=== PATIENT | male | born 1975 | race Caucasian/White ===

== ENCOUNTER 2017-02-26 15:37 | Inpatient (IN) | payer MEDICARE, OTHER ==
--- NOTE | ~2017-02-26 | PN ---
Unit #: [id number] #: [id number] Patient: REENA ACKERMAN [id number] [facility] [address] [place] [address] [id number] I MR#: [id number] NAME: REENA ACKERMAN. ROOM: P264 Age: 41 Sex: M Admission Date: 02/26/2017 : 1975 Attending Physician: Luz Mena M.D. Admitting Physician: Luz Mena M.D. Primary Care Physician: Primary Care Physician Jazz MORFIN PROGRESS NOTES DATE 03/07/2017 DISCUSSION Mr. Ackerman is a 41-year-old white male who was seen today and chart was reviewed and case was discussed with the staff. He is anxious, withdrawn and rather seclusive to himself. Meanwhile, he has been cooperative with treatment recommendations and has been taking medications and tolerating them fairly well. MENTAL STATUS EXAMINATION Middle-aged white male who was casually dressed with fair personal hygiene and appears to be in no acute distress or discomfort. He was awake and alert on interaction with intact orientation. His mood was anxious with congruent affect. He denies any suicidal or homicidal ideations. His insight and judgement remains slightly impaired. TREATMENT PLAN 1. Will continue his current medications and treatment protocol. Will monitor his response to the medications and make further adjustments as needed. 2. Will continue to follow up. Dictated by... Anthony Guadarrama/cecil TD: 03/07/2017 18:19 JOB #: [id number] Unit #: [id number] #: [id number] Patient: REENA ACKERMAN PROGRESS NOTES Page 1 of 1 X Luz Mena MD X PROGRESS NOTE
--- NOTE | ~2017-02-26 | PN ---
Unit #: [id number] #: [id number] Patient: REENA ACKERMAN [id number] [facility] [address] [place] [address] [id number] I MR#: [id number] NAME: REENA ACKERMAN. ROOM: P254 Age: 41 Sex: M Admission Date: 02/26/2017 : 1975 Attending Physician: Luz Mena M.D. Admitting Physician: Luz Mena M.D. Primary Care Physician: Primary Care Physician Jazz MORFIN PROGRESS NOTES DATE OF SERVICE 02/27/2017 DISCUSSION Mr. Ackerman is a 41-year-old white male who was seen today. Chart was reviewed and case was discussed with the staff. He has been anxious, withdrawn, and rather seclusive to himself and has been expressing persistent depressive symptoms with feelings of hopelessness. Meanwhile, he has been polite and pleasant, cooperative with treatment recommendations. MENTAL STATUS EXAMINATION Middle-aged white male who is casually dressed with fair personal hygiene and appears to be in no acute distress or discomfort. The patient was awake and alert on interaction with intact orientation. His mood is anxious and depressed with congruent affect. His speech is slow and goal-directed. He denies any suicidal or homicidal ideations and also denies any auditory or visual hallucinations. His insight and judgment remain slightly impaired. TREATMENT PLAN 1. We will continue him on his current medications and treatment protocol. We will monitor his response to the medications and make further adjustments as needed. 2. We will continue to follow up. Dictated by... Anthony Guadarrama/josiah TD: 02/28/2017 07:11 JOB #: [id number] Unit #: [id number] #: [id number] Patient: REENA ACKERMAN SHELBIE PROGRESS NOTES Page 1 of 1 X Luz Mena MD PROGRESS NOTE
--- NOTE | ~2017-02-26 | PN ---
Unit #: [id number] #: [id number] Patient: REENA ACKERMAN [id number] [facility] [address] [place] [address] [id number] I MR#: [id number] NAME: REENA ACKERMAN. ROOM: P256 Age: 41 Sex: M Admission Date: 02/26/2017 : 1975 Attending Physician: Luz Mena M.D. Admitting Physician: Luz Mena M.D. Primary Care Physician: Primary Care Physician Jazz CLANCY NOTES DATE March 04, 2017 DISCUSSION Mr. Ackerman is a 41-year-old white male, who was seen today and chart was reviewed and the case was discussed with the staff. He has been anxious, withdrawn, and rather seclusive to himself. Meanwhile, he has been cooperative with the treatment recommendations and he has been taking the medications and tolerating them fairly well with no reported side effects. MENTAL STATUS EXAMINATION Middle-aged white male, who was casually dressed with fair personal hygiene and appears to be in no acute distress or discomfort. He was awake and alert on interaction with intact orientation. His mood is anxious with a congruent affect. He denies any suicidal or homicidal ideations, and also denies any auditory or visual hallucinations. His insight and judgment remain slightly impaired. TREATMENT PLAN 1. We will continue him on his current medications and treatment protocol, and will monitor his response to the medications, and make further adjustments as needed. 2. We will continue to followup. Dictated by... Anthony Guadarrama/hitesh TD: 03/04/2017 12:47 JOB #: [id number] Unit #: [id number] #: [id number] Patient: REENA ACKERMAN SHELBIE PROGRESS NOTES Page 1 of 1 X Luz Mena MD PROGRESS NOTE
--- NOTE | ~2017-02-26 | PN ---
Unit #: [id number] #: [id number] Patient: REENA ACKERMAN [id number] [facility] [address] [place] [address] [id number] I MR#: [id number] NAME: REENA ACKERMAN. ROOM: P256 Age: 41 Sex: M Admission Date: 02/26/2017 : 1975 Attending Physician: Luz Mena M.D. Admitting Physician: Luz Mena M.D. Primary Care Physician: Primary Care Physician Jazz MORFIN PROGRESS NOTES DATE 03/05/2017 DISCUSSION Mr. Ackerman is a 41-year-old white male with mood disorder and psychosis who was seen today and chart was reviewed and case was discussed with the staff. He has been anxious, withdrawn and rather seclusive to himself. Meanwhile, he has been cooperative with treatment recommendations and has been taking medications and tolerating them fairly well with no reported side effects. MENTAL STATUS EXAMINATION Middle-aged white male who was casually dressed with fair personal hygiene and appears to be in no acute distress or discomfort. He was awake and alert on interaction with intact orientation. His mood was anxious and depressed with congruent affect. His speech is slow and goal-directed. He reports having suicidal ideations as well as auditory hallucinations. His insight and judgement remains significantly impaired. TREATMENT PLAN 1. We will continue him on his current medications and treatment protocol. Will monitor his response to the medications and make further adjustments as needed. 2. Will continue to follow up. Dictated by... Anthony Guadarrama/cecil TD: 03/05/2017 18:18 JOB #: [id number] Unit #: [id number] #: [id number] Patient: REENA ACKERMAN SHELBIE PROGRESS NOTES Page 1 of 1 X Luz Mena MD PROGRESS NOTE
--- NOTE | ~2017-02-26 | PN ---
Unit #: [id number] #: [id number] Patient: REENA ACKERMAN [id number] [facility] [address] [place] [address] [id number] I MR#: [id number] NAME: REENA ACKERMAN. ROOM: P264 Age: 41 Sex: M Admission Date: 02/26/2017 : 1975 Attending Physician: Luz Mena M.D. Admitting Physician: Luz Mena M.D. Primary Care Physician: Primary Care Physician Jazz CLANCY NOTES DATE OF SERVICE: 03/09/2017 SUBJECTIVE Mr. Ackerman is a 41-year-old white male who was seen today and chart was reviewed, and case was discussed with the staff. He has been anxious, withdrawn, though has not shown any agitation or irritability, and has been cooperative with treatment recommendations as he has been taking the medications and tolerating them fairly well with no reported side effects. MENTAL STATUS EXAMINATION Middle-aged white male who was casually dressed with fair personal hygiene, appears to be in no acute distress or discomfort. He was awake and alert with intact orientation. His mood was anxious with a congruent affect. He denies any suicidal or homicidal ideation. His insight and judgment remain slightly impaired. TREATMENT PLAN 1. We will continue him on his current medications and treatment protocol. We will monitor his response to the medication and make further adjustments as needed. 2. We will continue to follow up. Dictated by... Anthony Guadarrama/cecilia TD: 03/09/2017 13:32 JOB #: [id number] [facility] PROGRESS NOTES Page 1 of 1 X Luz Mena MD PROGRESS NOTE
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
--- NOTE | ~2017-02-26 | PN ---
Unit #: [id number] #: [id number] Patient: REENA ACKERMAN [id number] [facility] [address] [place] [address] [id number] I MR#: [id number] NAME: REENA ACKERMAN. ROOM: P254 Age: 41 Sex: M Admission Date: 02/26/2017 : 1975 Attending Physician: Luz Mena M.D. Admitting Physician: Luz Mena M.D. Primary Care Physician: Primary Care Physician Jazz CLANCY NOTES DATE OF SERVICE: 03/02/2017 SUBJECTIVE Mr. Ackerman is a 41-year-old white male with mood disorder and psychosis, who was seen today and chart was reviewed and case was discussed with the staff. He has been anxious, withdrawn, and seclusive to himself. He reports persistent depressive symptoms, though has been cooperative with treatment recommendation and has been taking the medications and tolerating them fairly well with no reported side effects. MENTAL STATUS EXAMINATION Middle-aged white male who was casually dressed with fair personal hygiene, appears to be in no acute distress or discomfort. He was awake and alert on interaction with intact orientation. His mood was anxious with a congruent affect. He denies any suicidal or homicidal ideations. His insight and judgment remain slightly impaired. TREATMENT PLAN 1. We will continue him on his current medications and treatment protocol. We will monitor his response to medications and make further adjustments as needed. 2. We will continue to follow up. Dictated by... Anthony Guadarrama/cecilia TD: 03/02/2017 14:46 JOB #: [id number] SHELBIE PROGRESS NOTES Page 1 of 1 X Luz Mena MD X PROGRESS NOTE
--- NOTE | ~2017-02-26 | DS ---
Unit #: [id number] #: [id number] Patient: REENA KNOTT [id number] [facility] [address] [place] [address] [id number] I MR#: [id number] NAME: REENA KNOTT. ROOM: P264 Age: 41 Sex: M Admission Date: 02/26/2017 : 1975 Discharge Date: 03/14/2017 Attending Physician: Luz Mena M.D. Primary Care Physician: Primary Care Physician No DISCHARGE SUMMARY IDENTIFYING DATA Mr. Knott is a 41-year-old disabled white male, who is a resident of [place], [place], and was transferred to us from [facility]. DISCHARGE DIAGNOSES Psychiatric: Major depressive disorder, recurrent, moderate, without psychotic features; alcohol dependence, moderate, in acute withdrawals. Medical: Hypertension, diabetes mellitus, hypothyroidism. Stressors: Moderate psychosocial stressors. HISTORY OF PRESENT ILLNESS Please see initial psychiatric evaluation for details. PAST PSYCHIATRIC HISTORY Please see initial psychiatric evaluation for details. PAST MEDICAL HISTORY Please see initial psychiatric evaluation for details. HOSPITAL COURSE The patient was admitted to the adult psychiatric unit at [facility] and was oriented to the hospital environment. Routine p.r.n. medications were initiated, and he was started back on his home medications and medications were adjusted and he was closely monitored. He was taking the medications regularly and was tolerating them fairly well, though had a long and complicated course with persistent depression and psychosis; however, he was seen to be polite and pleasant and cooperative with treatment recommendations, and he was going to therapy groups and was participating and was taking the medications regularly and was tolerating them fairly well of his medications particularly his Seroquel was gradually and regularly titrated and he was also considered to be a candidate for combination antidepressant due to his persistent depressive symptoms and also medications were adjusted and he started showing therapeutic response. He actually started asking wanting to go home and was denying any suicidal ideations, intent, or plan and was not seen to be danger to self or anyone else, and was willing to continue treatment on an outpatient basis and as such, it was decided that he will be discharged home and will continue treatment on an outpatient basis. DISCHARGE MEDICATIONS Seroquel 50 mg in the morning and 400 mg at bedtime for mood, Zoloft 100 mg in the morning for depression, Wellbutrin XL 300 mg in the morning for depression, Protonix 40 mg a day for acid reflux, Actos 45 mg a day for Unit #: [id number] #: [id number] Patient: REENA KNOTT diabetes, Levemir 40 units at bedtime for diabetes, Proventil inhaler every 6 hours as needed for asthma, Zestril 20 mg a day for hypertension, Oretic 12.5 mg a day for hypertension, Neurontin 800 mg t.i.d. for neuropathy, Glucophage 500 mg b.i.d. for diabetes, Synthroid 0.1 mg a day for diabetes. DISCHARGE CONDITION Stable. PROGNOSIS Fair. Dictated by... Luz Mena M.D. IAA/modl TD: 03/14/2017 07:09 JOB #: [id number] DISCHARGE SUMMARY Page 1 of 1 X Luz Mena MD X DISCHARGE SUMMARY
--- NOTE | ~2017-02-26 | PN ---
Unit #: [id number] #: [id number] Patient: REENA ACKERMAN [id number] [facility] [address] [place] [address] [id number] I MR#: [id number] NAME: REENA ACKERMAN. ROOM: P254 Age: 41 Sex: M Admission Date: 02/26/2017 : 1975 Attending Physician: Luz Mena M.D. Admitting Physician: Luz Mena M.D. Primary Care Physician: Primary Care Physician Jazz CLANCY NOTES DATE OF SERVICE: 03/01/2017 SUBJECTIVE Mr. Ackerman is a 41-year-old white male who was seen today and chart was reviewed and case was discussed with the staff. He has been anxious, withdrawn, and rather seclusive to himself. Meanwhile, he has been cooperative with treatment recommendations and has been taking the medications and tolerating them fairly well with no reported side effects. MENTAL STATUS EXAMINATION Middle-aged white male who was casually dressed with fair personal hygiene, appears to be in no acute distress or discomfort. He was awake and alert on interaction with intact attention. His mood was anxious with a congruent affect. He reports having suicidal ideations, but denies any homicidal ideations, and also reports auditory hallucinations. His insight and judgment remain slightly impaired. TREATMENT PLAN 1. We will continue him on his current medications and treatment protocol. We will monitor his response to the medications and make further adjustments as needed. 2. We will continue to follow up. Dictated by... Anthony Guadarrama/cecilia TD: 03/01/2017 10:41 JOB #: [id number] [facility] PROGRESS NOTES Page 1 of 1 X Luz Mena MD PROGRESS NOTE
--- NOTE | ~2017-02-26 | PN ---
Unit #: [id number] #: [id number] Patient: REENA ACKERMAN [id number] [facility] [address] [place] [address] [id number] MR#: [id number] NAME: REENA ACKERMAN. ROOM: P264 Age: 41 Sex: M Admission Date: 02/26/2017 : 1975 Attending Physician: Luz Mena M.D. Admitting Physician: Luz Mena M.D. Primary Care Physician: Primary Care Physician Jazz CLANCY NOTES DATE OF SERVICE 03/06/2017 DISCUSSION Mr. Ackerman is a 41-year-old white male who was seen today. Chart was reviewed and case was discussed with the staff. He has been anxious, withdrawn, and has not shown any agitation or irritability and has been cooperative with the treatment and taking the medications and tolerating them fairly. MENTAL STATUS EXAMINATION Middle-aged white male who is casually dressed with fair personal hygiene, appears to be in no acute distress or discomfort. The patient was awake and alert on interaction with intact orientation. His mood is anxious with a congruent affect. He denies any current suicidal or homicidal ideations. His insight and judgment remain slightly impaired. TREATMENT PLAN We will continue him on his current medications. We will monitor his response to the medications and make further adjustments as needed. Dictated by... Anthony Guadarrama/josiah TD: 03/06/2017 11:15 JOB #: [id number] [facility] PROGRESS NOTES Page 1 of 1 X Luz Mena MD X PROGRESS NOTE
--- NOTE | ~2017-02-26 | PN ---
Unit #: [id number] #: [id number] Patient: REEAN ACKERMAN [id number] [facility] [address] [place] [address] [id number] MR#: [id number] NAME: REENA ACKERMAN. ROOM: P264 Age: 41 Sex: M Admission Date: 02/26/2017 : 1975 Attending Physician: Luz Mena M.D. Admitting Physician: Luz Mena M.D. Primary Care Physician: Primary Care Physician Jazz CLANCY NOTES DATE March 10, 2017 DISCUSSION Mr. Ackerman is a 41-year-old white male, who was seen today and chart was reviewed and the case was discussed with the staff. He has been anxious, withdrawn, and rather seclusive to himself. Meanwhile, he has been cooperative with the treatment recommendations and he has been taking the medications and tolerating them fairly well with no reported side effects. MENTAL STATUS EXAMINATION Middle-aged white male, who was casually dressed with fair personal hygiene and appears to be in no acute distress or discomfort. He was awake and alert on interaction with intact orientation. His mood is anxious with a congruent affect. He denies any suicidal or homicidal ideations. Hus insight and judgment remain slightly impaired. TREATMENT PLAN 1. We will continue him on his current medications and treatment protocol, and will monitor his response to the medications, and make further adjustments as needed. 2. We will continue to followup. Dictated by... Anthony Guadarrama/hitesh TD: 03/11/2017 11:57 JOB #: [id number] Unit #: [id number] #: [id number] Patient: REENA ACKERMAN SHELBIE CLANCY NOTES Page 1 of 1 X Luz Mena MD PROGRESS NOTE
--- NOTE | ~2017-02-26 | A ---
[facility] DATE: 03/08/17 Patient: REENA KNOTT Physician: AFAIRF Address: [address] [place] [address] Room/Bed: [address], Zip: [place] [address] Admit Date: 02/26/17 Date of : [birth year] Height: 6 2 Weight: [phone] NUTRITIONAL ASSESSMENT: REASON: LENGTH OF STAY PATIENT ADMITTED FOR DEPRESSION AND SI PMH: HTN, DM, HX POLYSUBSTANCE ABUSE, HYPOTHYROIDISM, HYPERCHOLESTEROLEMIA, HEP C, HX WITHDRAWAL SEIZURES Anthropometrics: HT: 6'2", WT: 220#, BMI: 28.2 Labs: NO LABS AVAILABLE Meds: HCTZ, ZESTRIL, ZOLOFT, SEROQUEL, GLUCOPHAGE, NEURONTIN, MVI Assessment: PATIENT IS A 41 Y/O MALE ADMITTED FOR DEPRESSION AND SI. PATIENT IS CURRENTLY ON DISABILITY, HOMELESS, SMOKES 1 PPD, AND DENIES CURRENT SUBSTANCE ABUSE. PATIENT HAS A HX OF INPATIENT PSYCH HOSPITALIZATION AND HE HAS BEEN NON-COMPLIANT WITH HIS MEDICTATIONS PRIOR TO ADMIT. UPON ADMIT PATIENT STATED A POOR APPETITE WITH A 10# WIEGHT LOSS OVER LAST SEVERAL MONTHS. NURSING REPORTS CONSISTENTLY GOOD PO INTAKES. PAIENT HAS BEEN COMPLIANT WITH TREATMENT. THERE ARE NO SKIN OR GI ISSUES NOTED ATT. PATIENT IS ON A REGULAR DIET AND RECEIVES LARGE PORTION ENTREES. Dx: NO NUTRITION DX Intervention: REGULAR DIET, LARGE PORTION ENTREES, MEDS PER MD, PSYCH Monitoring, Evaluation and Goals: 1. ADEQUATE PO INTAKES >50% OF MEALS 2. PREVENT, CORRECT MICRO/MACRO NUTRIENT DEFICIENCIES MONITOR: WEIGHTS, LABS, PO/FLUID INTAKES Recommendations: 1. CONTINUE REGULAR DIET WITH LARGE PORTION ENTREES TOLERATED 2. ENCOURAGE ADEQUATE PO AND FLUID INTAKES RD TO F/U PER PROTOCOL AND PRN R/T PATIENT NOT AT NUTRITIONAL RISK ATT [facility] DATE: 03/08/17 Patient: REENA KNOTT Physician: PATIAIRF Address: [address] [place] [address] Room/Bed: [address], Zip: [place] [address] Admit Date: 02/26/17 Date of : [birth year] Height: 6 2 Weight: [phone] Respectfully, TERRA ELLISON RD, LD [facility] cc: client file
--- NOTE | ~2017-02-26 | PN ---
Unit #: [id number] #: [id number] Patient: REENA ACKERMAN [id number] [facility] [address] [place] [address] [id number] MR#: [id number] NAME: REENA ACKERMAN. ROOM: P254 Age: 41 Sex: M Admission Date: 02/26/2017 : 1975 Attending Physician: Luz Mena M.D. Admitting Physician: Luz Mena M.D. Primary Care Physician: Primary Care Physician Jazz CLANCY NOTES DATE March 03, 2017 DISCUSSION Mr. Ackerman is a 41-year-old white male, with mood disorder and psychosis, who was seen today and chart was reviewed and the case was discussed with the staff. He reports still having persistent auditory hallucinations and want to get medication, particularly Seroquel to be increased. MENTAL STATUS EXAMINATION Middle-aged white male, who was casually dressed with fair personal hygiene and appears to be in slight distress and discomfort. He was awake and alert on interaction with intact orientation. His mood is anxious with a congruent affect. His speech is slow and goal-directed. He denies any suicidal or homicidal ideations and does report auditory hallucinations. His insight and judgment remain slightly impaired. TREATMENT PLAN 1. We will continue him on his current medications and treatment protocol, and will monitor his response to the medications, and make further adjustments as needed. 2. We will continue to followup. Dictated by... Anthony Guadarrama/hitesh TD: 03/04/2017 05:12 JOB #: [id number] Unit #: [id number] #: [id number] Patient: REENA ACKERMAN SHELBIE PROGRESS NOTES Page 1 of 1 X Luz Mena MD PROGRESS NOTE
--- NOTE | ~2017-02-26 | PN ---
Unit #: [id number] #: [id number] Patient: REENA ACKERMAN [id number] [facility] [address] [place] [address] [id number] MR#: [id number] NAME: REENA ACKERMAN. ROOM: P264 Age: 41 Sex: M Admission Date: 02/26/2017 : 1975 Attending Physician: Luz Mena M.D. Admitting Physician: Luz Mena M.D. Primary Care Physician: Primary Care Physician Jazz CLANCY NOTES DATE March 13, 2017 DISCUSSION Mr. Ackerman is a 41-year-old white male, who was seen today and chart was reviewed and the case was discussed with the staff. He reports doing better and has been showing improvement in his depression and anxiety and cooperative with the treatment recommendations and he has been taking the medications and tolerating them fairly well with no reported side effects. MENTAL STATUS EXAMINATION Middle-aged white male, who was casually dressed with fair personal hygiene and appears to be in no acute distress or discomfort. He was awake and alert on interaction with intact orientation. His mood is anxious with a congruent affect. He denies any suicidal or homicidal ideations, and also denies any auditory or visual hallucinations. His insight and judgment remain slightly impaired. TREATMENT PLAN 1. We will continue him on his current medications and treatment protocol, and will monitor his response to the medications, and make further adjustments as needed. 2. We will continue to followup. Dictated by... Anthony Guadarrama/hitesh TD: 03/13/2017 09:32 JOB #: [id number] Unit #: [id number] #: [id number] Patient: REENA ACKERMAN SHELBIE PROGRESS NOTES Page 1 of 1 X Luz Mena MD PROGRESS NOTE
--- NOTE | ~2017-02-26 | PN ---
Unit #: [id number] #: [id number] Patient: REENA ACKERMAN [id number] [facility] [address] [place] [address] [id number] MR#: [id number] NAME: REENA ACKERMAN. ROOM: P264 Age: 41 Sex: M Admission Date: 02/26/2017 : 1975 Attending Physician: Luz Mena M.D. Admitting Physician: Luz Mena M.D. Primary Care Physician: Primary Care Physician Jazz CLANCY NOTES DATE March 11, 2017 DISCUSSION Mr. Ackerman is a 41-year-old white male, who was seen today and chart was reviewed and the case was discussed with the staff. He has been anxious and withdrawn but has not shown any agitation or irritability and has been cooperative with his treatment recommendations and he has been taking the medications and tolerating them fairly well with no reported side effects. MENTAL STATUS EXAMINATION Middle-aged white male, who was casually dressed with fair personal hygiene and appears to be in no acute distress or discomfort. He was awake and alert with intact orientation. His mood is anxious with a congruent affect. He denies any suicidal or homicidal ideations. His insight and judgment remain slightly impaired. TREATMENT PLAN 1. We will continue him on his current medications and treatment protocol, and will monitor his response to the medications, and make further adjustments as needed. 2. We will continue to followup. Dictated by... Anthony Guadarrama/hitesh TD: 03/12/2017 05:11 JOB #: [id number] Unit #: [id number] #: [id number] Patient: REENA ACKERMAN SHELBIE PROGRESS NOTES Page 1 of 1 X Luz Mena MD PROGRESS NOTE
--- NOTE | ~2017-02-26 | PA ---
Unit #: [id number] #: [id number] Patient: REENA ACKERMAN [id number] [facility] [address] [place] [address] [id number] MR#: [id number] NAME: REENA ACKERMAN. ROOM: P254 Age: 41 Sex: M Admission Date: 02/26/2017 : 1975 Date of Assessment: 02/26/2017 Attending Physician: Luz Mena M.D. Admitting Physician: Luz Mena M.D. Primary Care Physician: Primary Care Physician No PSYCHIATRIC ASSESSMENT DATE OF SERVICE 02/26/2017. IDENTIFYING DATA Mr. Ackerman is a 41-year-old white male, who is a resident of [place], [place], and was transferred to us from [facility] on a voluntary basis. CHIEF COMPLAINT "I feel worthless and I want to ." HISTORY OF PRESENT ILLNESS A 41-year-old white male with history of mood disorder, is known to us from previous encounter, was transferred to us from [facility], where he presented reporting increasing depression and wanting to and reported that he is trying to ingest undisclosed amount of Wellbutrin yesterday and later he vomited them and he stated that he had attempted to end his life [place] [address] [place], but was unsuccessful when he dropped his rope in the river and he states that he has no desire to live and continues to endorse suicidal ideation with plan to take all of his prescribed medication when he is released from the hospital. He stated that he is really need of help as he does not feel that he can contract for safety if he was to be released from the hospital as he stated that he plans to ingest all of his prescribed medication to kill himself. He stated that he is unable to work due to his disability and that he has no permanent housing at this point and he sleeps in a long term with friends when he can and being but legally and his left him 4 years ago and that he would like to reunite with his , but states this will never happen and he does endorse feelings of hopelessness and helplessness, and suicidal ideations with active intent and plan and as such, was seen to be a significant danger to self and others and therefore, recommendation for inpatient level of care for safety and stabilization was made and the patient was transferred to us. SUBSTANCE ABUSE HISTORY The patient denies any history of alcohol or drug abuse. PAST PSYCHIATRIC HISTORY The patient has had history of inpatient psychiatric hospitalization at [facility] and review of the medical records indicate that he currently supposed to be on a combination of Seroquel and Zoloft and Wellbutrin, though has been noncompliant with medications and as such, has Unit #: [id number] #: [id number] Patient: REENA ACKERMAN been decompensating. PAST MEDICAL HISTORY The patient's medical history is significant for diabetes mellitus, hypertension, hypothyroidism. ALLERGIES No known medication allergies. PERSONAL AND SOCIAL HISTORY A 41-year-old white male, who reports that he is and and is currently unemployed and describes himself to be homeless and has poor social support system. MENTAL STATUS EXAMINATION Middle-aged white male who was casually dressed with fair personal hygiene, appears to be in no acute distress or discomfort. He was awake and alert on interaction with intact orientation to time, place, and person. His mood was anxious and depressed with a congruent affect. His speech was slow and restricted in content. His thought processes were disorganized with some looseness of associations and suicidal ideations. His insight and judgment remain significantly impaired. DIAGNOSTIC IMPRESSION Psychiatric: Major depressive disorder, recurrent, moderate, without psychotic features; alcohol dependence, moderate and acute withdrawals. Medical: Hypertension, diabetes mellitus, hypothyroidism. Stressors: Moderate psychosocial stressors. TREATMENT PLAN 1. The patient has presented with history of mood disorder and has been decompensating and will need inpatient hospitalization for safety and stabilization. We will start him back on his home medications. We will adjust the medications and monitor response. 2. Supportive therapy was provided to the patient. 3. Safe, structured, and nourishing environment will be provided. ESTIMATED LENGTH OF STAY 5 to 7 days. ABILITY TO HELP SELF Limited. WILLINGNESS TO HELP SELF The patient appears to be willing to help self. STRENGTHS 1. Communicative. 2. Cooperative. PROBLEMS 1. Chronic dysphoric symptoms. 2. Poor social support system. DISCHARGE CRITERIA This will be contingent upon the patient's ability to show resolution of his depression and anxiety and his ability to stay safe to himself, particularly after discharge from the hospital. Unit #: [id number] #: [id number] Patient: SILVANAREENA LEO by... Anthony Guadarrama/cecilia TD: 02/27/2017 07:44 JOB #: [id number] PSYCHIATRIC ASSESSMENT Page 1 of 1 X Luz Mena MD PSYCHIATRIC ASSESSMENT
--- NOTE | ~2017-02-26 | PN ---
Unit #: [id number] #: [id number] Patient: REENA ACKERMAN [id number] [facility] [address] [place] [address] [id number] MR#: [id number] NAME: REENA ACKERMAN. ROOM: P264 Age: 41 Sex: M Admission Date: 02/26/2017 : 1975 Attending Physician: Luz Mena M.D. Admitting Physician: Luz Mena M.D. Primary Care Physician: Primary Care Physician Jazz MORFIN PROGRESS NOTES DATE 03/12/2017 DISCUSSION Mr. Ackerman is a 41-year-old white male who was seen today and chart was reviewed and case was discussed with the staff. He has been anxious, withdrawn and rather seclusive to himself. Meanwhile, he has been cooperative with treatment recommendations and has been taking medications and tolerating them fairly well with no reported side effects. MENTAL STATUS EXAMINATION Middle-aged white male who was casually dressed with fair personal hygiene and appears to be in no acute distress or discomfort. He was awake and alert on interaction with intact orientation. His mood was anxious and depressed with congruent affect. His speech is slow and goal-directed. He denies any suicidal or homicidal ideation and also denies any auditory or visual hallucinations. His insight and judgement remains slightly impaired. TREATMENT PLAN 1. Will continue on his current medications and treatment protocol and will monitor his response to the medications and make further adjustments as needed. 2. Will continue to follow up. Dictated by... Anthony Guadarrama/cecil TD: 03/12/2017 16:38 JOB #: [id number] Unit #: [id number] #: [id number] Patient: REENA ACKERMAN SHELBIE PROGRESS NOTES Page 1 of 1 X Luz Mena MD PROGRESS NOTE
--- NOTE | ~2017-02-26 | PN ---
Unit #: [id number] #: [id number] Patient: REENA ACKERMAN [id number] [facility] [address] [place] [address] [id number] MR#: [id number] NAME: REENA ACKERMAN. ROOM: P254 Age: 41 Sex: M Admission Date: 02/26/2017 : 1975 Attending Physician: Luz Mena M.D. Admitting Physician: Luz Mena M.D. Primary Care Physician: Primary Care Physician Jazz CLANCY NOTES DATE 02/28/2017 DISCUSSION Mr. Ackerman is a 41-year-old white male who was seen today and chart was reviewed and case was discussed with the staff. He has been anxious, withdrawn, rather seclusive to himself. Meanwhile, he has been cooperative with treatment recommendations and has been tolerating them fairly well with no reported side effects. MENTAL STATUS EXAMINATION Middle-aged white male who was casually dressed with fair personal hygiene and appears to be in no acute distress or discomfort. He was awake and alert on interaction with intact orientation. His mood was anxious and depressed with congruent affect. His speech is slow and goal-directed. He denies any suicidal or homicidal ideation and also denies any auditory or visual hallucinations. His insight and judgement remains slightly impaired. TREATMENT PLAN 1. Will continue his current medications and treatment protocol. Will monitor his response to the medications and make further adjustments as needed. 2. Will continue to follow up. Dictated by... Anthony Guadarrama/cecil TD: 02/28/2017 23:03 JOB #: [id number] Unit #: [id number] #: [id number] Patient: REENA ACKERMAN SHELBIE PROGRESS NOTES Page 1 of 1 X Luz Mena MD PROGRESS NOTE
--- NOTE | ~2017-02-26 | PN ---
Unit #: [id number] #: [id number] Patient: REENA ACKERMAN [id number] [facility] [address] [place] [address] [id number] I MR#: [id number] NAME: REENA ACKERMAN. ROOM: P264 Age: 41 Sex: M Admission Date: 02/26/2017 : 1975 Attending Physician: Luz Mena M.D. Admitting Physician: Luz Mena M.D. Primary Care Physician: Primary Care Physician Jazz CLANCY NOTES DATE OF SERVICE 03/08/2017 DISCUSSION Ms. Ackerman is a 41-year-old white male who was seen today. Chart was reviewed and case was discussed with the staff. He has been anxious, withdrawn, and rather seclusive to himself though has been reporting some improvement in his mood and daily functioning. Meanwhile, he has been cooperative with the treatment recommendations and has been taking the medications and tolerating them fairly well with no reported side effects. MENTAL STATUS EXAMINATION Middle-aged white male who is casually dressed with fair personal hygiene, appears to be in no acute distress or discomfort. He was awake and alert on interaction with intact orientation. His mood is anxious with congruent affect. He denies any suicidal or homicidal ideations. His insight and judgment remain slightly impaired. TREATMENT PLAN 1. We will continue him on his current medications and treatment protocol. We will monitor his response to the medications and make further adjustments as needed. 2. We will continue to follow up. Dictated by... Anthony Guadarrama/josiah TD: 03/08/2017 11:00 JOB #: [id number] Unit #: [id number] #: [id number] Patient: REENA ACKERMAN MAGUIGUERRERO PROGRESS NOTES Page 1 of 1 X Luz Mena MD PROGRESS NOTE
[2017-02-27 09:58] LABS: URINE APPEARANCE CLEAR; URINE BILIRUBIN NEG (NEG); URINE BLOOD NEG (NEG); URINE COLOR DK YELLOW; URINE GLUCOSE NEG (NEG); URINE KETONE TRACE (NEG); URINE LEUKOCYTE ESTERASE NEG (NEG); URINE NITRATE NEG (NEG); URINE PH 5.5 (5-8); URINE PROTEIN 1+ (NEG); URINE UROBILINOGEN 0.2 MG/DL (NEG)
[2017-02-27 10:01] LABS: URINE BACTERIA AUWI NEG (NEGATIVE); URINE SQUAMOUS EPITHELIAL CELL NONE SEEN /[HPF]
== END 2017-03-14 11:10 | disposition home or self-care (01) | DRG 885 ==
LOC: P2L 15:37
PROVIDERS: Psychiatry & Neurology Psychiatry
DX: F33.1 Major depressive disorder, recurrent, moderate (principal); E11.9 Type 2 diabetes mellitus without complications; R45.851 Suicidal ideations; F10.239 Alcohol dependence with withdrawal, unspecified; I10 Essential (primary) hypertension; E03.9 Hypothyroidism, unspecified; F41.9 Anxiety disorder, unspecified; Z56.0 Unemployment, unspecified; E78.00 Pure hypercholesterolemia, unspecified; F17.210 Nicotine dependence, cigarettes, uncomplicated
CPT/HCPCS: 81003; 82947; 86592

== ENCOUNTER 2017-03-17 15:00 | Inpatient (IN) | payer MEDICARE ==
--- NOTE | ~2017-03-17 | PN ---
Unit #: [id number] #: [id number] Patient: REENA KNOTT [id number] [facility] [address] [place] [address] [id number] I MR#: [id number] NAME: REENA KNOTT. ROOM: P258 Age: 41 Sex: M Admission Date: 03/17/2017 : 1975 Attending Physician: Luz Mena M.D. Admitting Physician: Luz Mena M.D. Primary Care Physician: Primary Care Physician Jazz CLANCY NOTES DATE OF SERVICE 03/20/2017 DISCUSSION Mr. Knott is a 41-year-old white male who was seen today. Chart was reviewed and case was discussed with the staff. He has been anxious, withdrawn, and rather seclusive to himself. Meanwhile, he has been cooperative with the treatment recommendations and has been taking the medications and tolerating them fairly well with no reported side effects. MENTAL STATUS EXAMINATION Middle-aged white male who is casually dressed with fair personal hygiene, appears to be in no acute distress or discomfort. He was awake and alert on interaction with intact orientation. His mood is anxious with congruent affect. He denies any suicidal or homicidal ideations and also denies any auditory or visual hallucinations. His insight and judgment remain slightly impaired. TREATMENT PLAN 1. We will continue him on him current medications and treatment protocol. We will monitor his response to medications and make further adjustments as needed. 2. We will continue to follow up. Dictated by... Luz Mena M.D. IAA/bzg TD: 03/20/2017 13:10 JOB #: [id number] Unit #: [id number] #: [id number] Patient: REENA KNOTT SHELBIE PROGRESS NOTES Page 1 of 1 X Luz Mena MD PROGRESS NOTE
--- NOTE | ~2017-03-17 | PN ---
Unit #: [id number] #: [id number] Patient: REENA ACKERMAN [id number] [facility] [address] [place] [address] [id number] I MR#: [id number] NAME: REENA ACKERMAN. ROOM: P258 Age: 41 Sex: M Admission Date: 03/17/2017 : 1975 Attending Physician: Luz Mena M.D. Admitting Physician: Luz Mena M.D. Primary Care Physician: Primary Care Physician Jazz CLANCY NOTES DATE March 18, 2017 DISCUSSION Mr. Ackerman is a 41-year-old white male, who was seen today and chart was reviewed and the case was discussed with the staff. He has been anxious, withdrawn, and rather seclusive to himself. Meanwhile, he has been cooperative with the treatment recommendations and he has been taking the medications and tolerating them fairly well with no reported side effects. MENTAL STATUS EXAMINATION Middle-aged white male, who was casually dressed with fair personal hygiene and appears to be in no acute distress or discomfort. He was awake and alert on interaction with intact orientation. His mood is anxious with a congruent affect. He denies any suicidal or homicidal ideations. His insight and judgment remain slightly impaired. TREATMENT PLAN 1. We will continue him on his current medications and treatment protocol, and will monitor his response to the medications, and make further adjustments as needed. 2. We will continue to followup. Dictated by... Anthony Guadarrama/hitesh TD: 03/19/2017 06:14 JOB #: [id number] Unit #: [id number] #: [id number] Patient: REENA ACKERMAN SHELBIE CLANCY NOTES Page 1 of 1 X Luz Mena MD PROGRESS NOTE
--- NOTE | ~2017-03-17 | HP ---
Unit #: [id number] #: [id number] Patient: REENA KNOTT [id number] [facility] [address] [place] [address] [id number] MR#: [id number] NAME: REENA KNOTT. ROOM: P258 Age: 41 Sex: M Admission Date: 03/17/2017 : 1975 Attending Physician: Luz Mena M.D. Admitting Physician: Luz Mena M.D. Primary Care Physician: Primary Care Physician No HISTORY AND PHYSICAL HISTORY OF PRESENT ILLNESS The patient is a 41-year-old male admitted to [address] [place] [address] on 03/17/2017 for suicidal ideation. The patient had a recent admission on 02/26/2017 where a full history and physical was completed. That history and physical has been reviewed no changes need to be made. Dictated by... Georgia Pineda/helena TD: 03/18/2017 00:05 JOB #: [id number] HISTORY AND PHYSICAL Page 1 of 1 X COLEMAN RIVERO APRN X HISTORY AND PHYSICAL
--- NOTE | ~2017-03-17 | PN ---
Unit #: [id number] #: [id number] Patient: REENA ACKERMAN [id number] [facility] [address] [place] [address] [id number] MR#: [id number] NAME: REENA ACKERMAN. ROOM: P258 Age: 41 Sex: M Admission Date: 03/17/2017 : 1975 Attending Physician: Luz Mena M.D. Admitting Physician: Luz Mena M.D. Primary Care Physician: Primary Care Physician Jazz CLANCY NOTES DATE OF SERVICE: 03/23/2017 SUBJECTIVE Mr. Ackerman is a 41-year-old white male who was seen today and chart was reviewed, and case was discussed with the staff. He has been anxious, withdrawn, though has not shown any agitation or irritability, and has been cooperative with treatment recommendations and has been taking the medications and tolerating them fairly well with no reported side effects. MENTAL STATUS EXAMINATION Middle-aged white male who was casually dressed with fair personal hygiene, appears to be in no acute distress or discomfort. He was awake and alert on interaction with intact orientation. His mood was anxious with a congruent affect. He denies any suicidal or homicidal ideations. His insight and judgment remain slightly impaired. TREATMENT PLAN 1. We will continue him on his current medications and treatment protocol. We will monitor his response to medications and make further adjustments as needed. 2. We will continue to follow up. Dictated by... Anthony Guadarrama/cecilia TD: 03/23/2017 19:07 JOB #: [id number] SHELBIE PROGRESS NOTES Page 1 of 1 X Luz Mena MD PROGRESS NOTE
--- NOTE | ~2017-03-17 | PN ---
Unit #: [id number] #: [id number] Patient: REENA ACKERMAN [id number] [facility] [address] [place] [address] [id number] MR#: [id number] NAME: REENA ACKERMAN. ROOM: P258 Age: 41 Sex: M Admission Date: 03/17/2017 : 1975 Attending Physician: Luz Mena M.D. Admitting Physician: Luz Mena M.D. Primary Care Physician: Primary Care Physician Jazz MORFIN PROGRESS NOTES DATE OF SERVICE: 03/24/2017 SUBJECTIVE Mr. Ackerman is a 41-year-old white male who was seen today and chart was reviewed, and case was discussed with the staff. He has been anxious, withdrawn, and rather seclusive to himself. Meanwhile, he has been cooperative with treatment recommendations and has been taking the medications and tolerating them fairly well with no reported side effects. MENTAL STATUS EXAMINATION Middle-aged white male who was casually dressed with fair personal hygiene, appears to be in no acute distress or discomfort. He was awake and alert on interaction with intact orientation. His mood was anxious with a congruent affect. He denies any suicidal or homicidal ideations. His insight and judgment remain slightly impaired. TREATMENT PLAN 1. We will continue him on his current medications and treatment protocol. We will monitor his response to the medications and make further adjustments as needed. 2. We will continue to follow up. Dictated by... Anthony Guadarrama/stanl TD: 03/24/2017 21:33 JOB #: [id number] [facility] PROGRESS NOTES Page 1 of 1 X Luz Mena MD PROGRESS NOTE
--- NOTE | ~2017-03-17 | PN ---
Unit #: [id number] #: [id number] Patient: REENA ACKERMAN [id number] [facility] [address] [place] [address] [id number] I MR#: [id number] NAME: REENA ACKERMAN. ROOM: P258 Age: 41 Sex: M Admission Date: 03/17/2017 : 1975 Attending Physician: Luz Mena M.D. Admitting Physician: Luz Mena M.D. Primary Care Physician: Primary Care Physician Jazz CLANCY NOTES DATE OF SERVICE: 03/23/2017 SUBJECTIVE Mr. Ackerman is a 41-year-old white male, who was seen today and chart was reviewed, and case was discussed with the staff. He has been anxious, withdrawn, and rather seclusive to himself. Meanwhile, he has been cooperative with treatment recommendations and has been taking the medications and tolerating them fairly well with no reported side effects. MENTAL STATUS EXAMINATION Middle-aged white male, who was casually dressed with fair personal hygiene, appears to be in no acute distress or discomfort. He was awake and alert on interaction with intact orientation. His mood was anxious with a congruent affect. He denies any suicidal or homicidal ideations. His insight and judgment remain slightly impaired. TREATMENT PLAN 1. We will continue him on his current medications and treatment protocol. We will monitor his response to medications and make further adjustments as needed. 2. We will continue to follow up. Dictated by... Anthony Guadarrama/cecilia TD: 03/25/2017 07:06 JOB #: [id number] [facility] PROGRESS NOTES Page 1 of 1 X Luz Mena MD PROGRESS NOTE
--- NOTE | ~2017-03-17 | PN ---
Unit #: [id number] #: [id number] Patient: REENA ACKERMAN [id number] [facility] [address] [place] [address] [id number] I MR#: [id number] NAME: REENA ACKERMAN. ROOM: P258 Age: 41 Sex: M Admission Date: 03/17/2017 : 1975 Attending Physician: Luz Mena M.D. Admitting Physician: Luz Mena M.D. Primary Care Physician: Primary Care Physician Jazz CLANCY NOTES DATE 03/22/2017 DISCUSSION Mr. Ackerman is a 41-year-old white male who was seen today and chart was reviewed and case was discussed with the staff. He has been anxious, withdrawn and rather seclusive to himself. Meanwhile, he has been cooperative with treatment recommendations and has been taking medications and tolerating them fairly well with no reported side effects. MENTAL STATUS EXAMINATION Middle-aged white male who was casually dressed with fair personal hygiene and appears to be in no acute distress or discomfort. He was awake and alert on interaction with intact orientation. His mood was anxious with congruent affect. He denies any suicidal or homicidal ideations and also denies any auditory or visual hallucinations. His insight and judgement remains slightly impaired. TREATMENT PLAN 1. Will continue his current medications and treatment protocol. Will monitor his response to the medications and make further adjustments as needed. 2. Will continue to follow up. Dictated by... Anthony Guadarrama/cecil TD: 03/23/2017 23:22 JOB #: [id number] Unit #: [id number] #: [id number] Patient: REENA ACKERMAN SHELBIE PROGRESS NOTES Page 1 of 1 X Luz Mena MD PROGRESS NOTE
--- NOTE | ~2017-03-17 | PN ---
Unit #: [id number] #: [id number] Patient: REENA ACKERMAN [id number] [facility] [address] [place] [address] [id number] I MR#: [id number] NAME: REENA ACKERMAN. ROOM: P258 Age: 41 Sex: M Admission Date: 03/17/2017 : 1975 Attending Physician: Luz Mena M.D. Admitting Physician: Luz Mena M.D. Primary Care Physician: Primary Care Physician Jazz CLANCY NOTES DATE 03/21/2017 DISCUSSION Mr. Ackerman is a 41-year-old, white male who was seen today and chart was reviewed and case was discussed with the staff. He has been anxious, withdrawn though has not shown any agitation, irritability and has been cooperative with treatment recommendations. He has been taking the medication and tolerating them fairly well with no reported side effects. MENTAL STATUS EXAM Middle-aged white male who was casually dressed with fair personal hygiene, appears to be in no acute distress or discomfort. He was awake and alert on interaction with intact orientation. His mood was anxious with congruent affect. He denies any suicidal or homicidal ideation. His insight and judgement remains slightly impaired. TREATMENT PLAN 1. We will continue him on his current medications and treatment protocol. We will monitor his response to the medication and make further adjustments as needed. 2. We will continue to follow up. Dictated by... Anthony Guadarrama/helena TD: 03/22/2017 03:34 JOB #: [id number] Unit #: [id number] #: [id number] Patient: REENA ACKERMAN SHELBIE CLANCY NOTES Page 1 of 1 X Luz Mena MD PROGRESS NOTE
--- NOTE | ~2017-03-17 | PA ---
Unit #: [id number] #: [id number] Patient: REENA ACKERMAN [id number] [facility] [address] [place] [address] [id number] I MR#: [id number] NAME: REENA ACKERMAN. ROOM: P258 Age: 41 Sex: M Admission Date: 03/17/2017 : 1975 Date of Assessment: 03/17/2017 Attending Physician: Luz Mena M.D. Admitting Physician: Luz Mnea M.D. Primary Care Physician: Primary Care Physician No PSYCHIATRIC ASSESSMENT DATE OF SERVICE 03/17/2017. IDENTIFYING DATA Mr. Ackerman is a 41-year-old single disabled white male, who is a resident of [place], [place], and is known to us from previous encounter and was just discharged from my care; however, he was brought back to the hospital. CHIEF COMPLAINT "I smoked cocaine. I ingested a full bottle of Wellbutrin." HISTORY OF PRESENT ILLNESS Mr. Ackerman is a 41-year-old white male, who was recently discharged and reports that he got out of the hospital and then he got into an argument with his mother and decompensated and ended up smoking cocaine and ingested a full bottle of Wellbutrin and vomited most of that shortly afterward and ended up in the hospital the very next day after being [facility] and was medically cleared and reports still having feelings of depression and worthlessness and wanting to and has a long history of mood disorder. He was medically cleared and then transferred to us. On evaluation by me, the patient does report increasing depression, anxiety, restlessness, feelings of hopelessness and helplessness, and suicidal ideations and as such, a recommendation for inpatient level of care was made. SUBSTANCE ABUSE HISTORY The patient denies any history of alcohol or drug abuse. PAST PSYCHIATRIC HISTORY The patient has had a history of multiple inpatient psychiatric hospitalizations including being at [facility] and has been diagnosed and treated for mood disorder and is currently on a combination of Wellbutrin, Zoloft, and Seroquel. PAST MEDICAL HISTORY The patient's medical history is significant for diabetes mellitus, hypertension, and asthma. ALLERGIES No known medication allergies. PERSONAL AND SOCIAL HISTORY Unit #: [id number] #: [id number] Patient: REENA ACKERMAN A 41-year-old white male, who reports that he is single, disabled, and essentially homeless and has poor social support system. MENTAL STATUS EXAMINATION Middle-aged white male, who was casually dressed with fair personal hygiene, appears to be in no acute distress or discomfort. He was awake and alert on interaction with intact orientation to time, place, and person. His mood was anxious and depressed with a congruent affect. His speech was slow and restricted in content. His thought processes were disorganized with some looseness of associations and suicidal ideations. His insight and judgment remain significantly impaired. DIAGNOSTIC IMPRESSION Psychiatric: Major depressive disorder, recurrent, moderate, without psychotic features. Medical: Hypertension, diabetes mellitus, and asthma. Stressors: Moderate psychosocial stressors. TREATMENT PLAN 1. The patient has presented with a history of mood disorder and has been decompensating and will need inpatient hospitalization for safety and stabilization. We will start him back on his home medications. We will adjust the medications and monitor response. 2. Supportive therapy was provided to the patient. 3. Safe, structured, and nourishing environment will be provided. ESTIMATED LENGTH OF STAY 4 to 5 days. ABILITY TO HELP SELF Limited. WILLINGNESS TO HELP SELF The patient appears to be willing to help self. STRENGTHS 1. Communicative. 2. Cooperative. PROBLEMS 1. Chronic dysphoric symptoms. 2. Poor social support system. DISCHARGE CRITERIA This will be contingent upon the patient's ability to show resolution of his depression and anxiety and his ability to stay safe to himself and others, particularly after discharge from the hospital. Dictated by... Anthony Guadarrama/cecilia TD: 03/18/2017 10:52 JOB #: [id number] Unit #: [id number] #: [id number] Patient: REENA ACKERMAN PSYCHIATRIC ASSESSMENT Page 1 of 1 X Luz Mena MD PSYCHIATRIC ASSESSMENT
--- NOTE | ~2017-03-17 | PN ---
Unit #: [id number] #: [id number] Patient: REENA ACKERMAN [id number] [facility] [address] [place] [address] [id number] I MR#: [id number] NAME: REENA ACKERMAN. ROOM: P258 Age: 41 Sex: M Admission Date: 03/17/2017 : 1975 Attending Physician: Luz Mena M.D. Admitting Physician: Luz Mena M.D. Primary Care Physician: Primary Care Physician Jazz CLANCY NOTES DATE 03/19/2017 DISCUSSION Mr. Ackerman is a 41-year-old, white male who was seen today and chart was reviewed and case was discussed with the staff. He has been anxious, withdrawn and rather seclusive to himself. Meanwhile, he has been cooperative with the treatment recommendations. He has been taking the medication and tolerating them fairly well with no reported side effects. MENTAL STATUS EXAM hygiene, appears to be in no acute distress or discomfort. He was awake and alert on interaction with intact orientation. His mood was anxious with congruent affect. He denies any suicidal or homicidal ideation. His insight and judgement remains slightly impaired. TREATMENT PLAN 1. We will continue him on his current medications and treatment protocol. We will monitor his response to the medication and make further adjustments as needed. 2. We will continue to follow up. Dictated by... Anthony Guadarrama/helena TD: 03/20/2017 02:51 JOB #: [id number] Unit #: [id number] #: [id number] Patient: REENA ACKERMAN SHELBIE PROGRESS NOTES Page 1 of 1 X Luz Mena MD PROGRESS NOTE
--- NOTE | ~2017-03-17 | PN ---
Unit #: [id number] #: [id number] Patient: REENA ACKERMAN [id number] [facility] [address] [place] [address] [id number] MR#: [id number] NAME: REENA ACKERMAN. ROOM: P258 Age: 41 Sex: M Admission Date: 03/17/2017 : 1975 Attending Physician: Luz Mena M.D. Admitting Physician: Luz Mena M.D. Primary Care Physician: Primary Care Physician Jazz CLANCY NOTES DATE March 25, 2017 DISCUSSION Mr. Ackerman is a 41-year-old white male, who was seen today and chart was reviewed and the case was discussed with the staff. She has been anxious, withdrawn, but has not shown any agitation, irritability, and has been cooperative with the treatment recommendations and she has been taking the medications and tolerating them fairly well with no reported side effects. MENTAL STATUS EXAMINATION Middle-aged white male, who was casually dressed with fair personal hygiene and appears to be in no acute distress or discomfort. The patient was awake and alert with impaired attention and concentration. His mood is anxious with a congruent affect. The patient denies any suicidal or homicidal ideations. His insight and judgment remain slightly impaired. TREATMENT PLAN 1. We will continue him on his current medications and treatment protocol, and will monitor his response to the medications, and make further adjustments as needed. 2. We will continue to followup. Dictated by... Anthony Guadarrama/hitesh TD: 03/26/2017 13:05 JOB #: [id number] Unit #: [id number] #: [id number] Patient: REENA ACKERMAN SHELBIE PROGRESS NOTES Page 1 of 1 X Luz Mena MD PROGRESS NOTE
--- NOTE | ~2017-03-17 | DS ---
Unit #: [id number] #: [id number] Patient: REENA KNOTT [id number] [facility] [address] [place] [address] [id number] I MR#: [id number] NAME: REENA KNOTT. ROOM: P258 Age: 41 Sex: M Admission Date: 03/17/2017 : 1975 Discharge Date: 03/26/2017 Attending Physician: Luz Mena M.D. Primary Care Physician: Primary Care Physician No DISCHARGE SUMMARY IDENTIFYING DATA Mr. Knott is a 41-year-old single disabled white male, who is a resident of [place], [place], and is known to us from previous multiple encounters and was just discharged from my care and was brought back to the hospital on a voluntary basis. DISCHARGE DIAGNOSES Psychiatric: Major depressive disorder, recurrent, moderate, without psychotic features. Medical: Hypertension, diabetes mellitus, and asthma. Stressors: Moderate psychosocial stressors. HISTORY OF PRESENT ILLNESS Please see initial psychiatric evaluation for details. PAST PSYCHIATRIC HISTORY Please see initial psychiatric evaluation for details. PAST MEDICAL HISTORY Please see initial psychiatric evaluation for details. HOSPITAL COURSE The [facility] and was oriented to the hospital environment. Routine p.r.n. medications were initiated, and he was started back on his home medications including his Zoloft and Seroquel and was closely monitored. He was taking the medications regularly and was tolerating them fairly well and was able to show a decent and therapeutic response and as such, it was decided that he will be discharged home and will continue treatment on an outpatient basis. DISCHARGE MEDICATIONS None. DISCHARGE CONDITION Stable. PROGNOSIS Fair. Dictated by... Luz Mena M.D. Unit #: [id number] #: [id number] Patient: REENA KNOTT IAA/modl TD: 03/26/2017 07:18 JOB #: [id number] DISCHARGE SUMMARY Page 1 of 1 X Luz Mena MD X DISCHARGE SUMMARY
== END 2017-03-26 10:00 | disposition home or self-care (01) | DRG 885 ==
LOC: P2L 15:27
DX: F33.1 Major depressive disorder, recurrent, moderate (principal); E11.9 Type 2 diabetes mellitus without complications; R45.851 Suicidal ideations; J45.909 Unspecified asthma, uncomplicated; I10 Essential (primary) hypertension; Z59.0 Homelessness
CPT/HCPCS: 82947

== ENCOUNTER 2017-03-29 13:00 | Inpatient (IN) | payer MEDICARE ==
--- NOTE | ~2017-03-29 | DS ---
Unit #: [id number] #: [id number] Patient: REENA KNOTT [id number] [facility] [address] [place] [address] [id number] I MR#: [id number] NAME: REENA KNOTT. ROOM: P258 Age: 41 Sex: M Admission Date: 03/29/2017 : 1975 Discharge Date: Attending Physician: Luz Mena M.D. Primary Care Physician: Primary Care Physician No DISCHARGE SUMMARY TENTATIVE DISCHARGE DATE 04/10/2017. IDENTIFYING DATA Mr. Knott is a 41-year-old single disabled white male, who is a resident of [place], [place], and is known to us from previous encounter and was recently discharged from my care and was self-referred back to the hospital. DISCHARGE DIAGNOSES Psychiatric: Major depressive disorder, recurrent, moderate, without psychotic features. Medical: Hypertension and diabetes mellitus. Stressors: Moderate psychosocial stressors. HISTORY OF PRESENT ILLNESS Please see initial psychiatric evaluation for details. PAST PSYCHIATRIC HISTORY Please see initial psychiatric evaluation for details. PAST MEDICAL HISTORY Please see initial psychiatric evaluation for details. HOSPITAL COURSE The [facility] and was oriented to the hospital environment. Routine p.r.n. medications were initiated, and he was started back on his home medications. Seroquel was maintained and Zoloft was increased to 250 mg a day and he was closely monitored. He was seen to be initially very anxious, withdrawn, and seclusive to himself, though he was calm and cooperative with treatment recommendations, was able to show a therapeutic response with improvement in depression and anxiety and was denying any suicidal ideations, intent, or plan and as such, it was decided that he will be discharged home and will continue treatment on an outpatient basis. DISCHARGE CONDITION Stable. PROGNOSIS Fair. Dictated by... Unit #: [id number] #: [id number] Patient: REENA KNOTT Anthony Guadarrama/stanl TD: 04/10/2017 07:42 JOB #: [id number] DISCHARGE SUMMARY Page 1 of 1 X Luz Mena MD DISCHARGE SUMMARY
--- NOTE | ~2017-03-29 | PN ---
Unit #: [id number] #: [id number] Patient: REENA ACKERMAN [id number] [facility] [address] [place] [address] [id number] I MR#: [id number] NAME: REENA ACKERMAN. ROOM: P258 Age: 41 Sex: M Admission Date: 03/29/2017 : 1975 Attending Physician: Luz Mena M.D. Admitting Physician: Luz Mena M.D. Primary Care Physician: Primary Care Physician Jazz CLANCY NOTES DATE OF SERVICE: 04/04/2017 SUBJECTIVE Mr. Ackerman is a 41-year-old white male who was seen today and chart was reviewed and case was discussed with the staff. He has been anxious, withdrawn, and seclusive to himself. Reports persistent depressive symptoms and feelings of hopelessness. Meanwhile, he has been taking the medications and tolerating them fairly well with no reported side effects. MENTAL STATUS EXAMINATION Middle-aged white male who was casually dressed with fair personal hygiene, appears to be in no acute distress or discomfort. He was awake and alert on interaction with intact orientation. His mood was anxious with a congruent affect. He denies any suicidal or homicidal ideations, and also denies any auditory or visual hallucinations. His insight and judgment remain slightly impaired. TREATMENT PLAN 1. We will continue him on his current medications and treatment protocol. We will monitor his response to the medications and make further adjustments as needed. 2. We will continue to follow up. Dictated by... Anthony Guadarrama/cecilia TD: 04/05/2017 08:41 JOB #: [id number] SHELBIE PROGRESS NOTES Page 1 of 1 X Luz Mena MD PROGRESS NOTE
--- NOTE | ~2017-03-29 | HP ---
Unit #: [id number] #: [id number] Patient: ALEJANDRO KNOTT [id number] [facility] [address] [place] [address] [id number] I MR#: [id number] NAME: ALEJANDRO KNOTT. ROOM: P258 Age: 41 Sex: M Admission Date: 03/29/2017 : 1975 Attending Physician: Luz Mena M.D. Admitting Physician: Luz Mena M.D. Primary Care Physician: Primary Care Physician No HISTORY AND PHYSICAL HISTORY OF PRESENT ILLNESS Alejandro is a 41-year-old male admitted to [address] [place] [address] on 03/29/2017 for suicidal ideation. PAST MEDICAL HISTORY 1. Hypertension. 2. Type 2 diabetes. 3. Hepatitis C. 4. Withdrawal seizures. 5. Hyperlipidemia. 6. Hypothyroidism. 7. COPD. 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 SOCIAL HISTORY Smokes 1 pack cigarettes daily, binge alcohol use. No illegal drug use. He is currently and homeless. FAMILY HISTORY Noncontributory. REVIEW OF SYSTEMS CONSTITUTIONAL: No fever or chills. HEENT: Denies any sore throat, ear pain or runny nose. CARDIOVASCULAR: Denies chest pain, irregular heart rhythm or palpitations. CHEST: Denies shortness of breath or cough. No hemoptysis. GASTROINTESTINAL: Denies nausea, vomiting, diarrhea or chronic constipation. ENDOCRINE: Denies history of increased thirst or urination. No recent significant weight loss or gain. GENITOURINARY: Denies dysuria, frequency, or hematuria. SKIN: Complains of infection in left great toe and mole on back. HEMATOLOGIC: Denies history of increased bleeding or bruising. MUSCULOSKELETAL: Denies any hot, swollen joints. No generalized muscle pain. NEUROLOGIC: Denies problems with vision or speech. No frequent, severe headaches. No numbness, tingling or weakness in any extremities. Denies loss of bladder or bowel control. CURRENT MEDICATIONS Unit #: [id number] #: [id number] Patient: ALEJANDRO KNOTT Seroquel, Zoloft, Proventil, Protonix, Actos, Zestril, Oretic, Neurontin, Glucophage, Synthroid, NovoLog, Wellbutrin, and Levemir. ALLERGIES No known drug allergies. PHYSICAL EXAMINATION GENERAL: Alert, oriented, no acute distress. VITAL SIGNS: Blood pressure 129/94, heart rate 86, temperature 98.5, respirations 16. Height: 6 feet 2, weight 209 pounds. SKIN: Onychomycosis of left toe and large nevus on back. See medical consult. HEENT: Normocephalic. TMs not viewed. Oronasal passages clear. Conjunctivae clear. PERRLA. EOM is intact. NECK: No lymphadenopathy or thyromegaly. HEART: Regular rate and rhythm. No murmur, gallop, or rub. LUNGS: Clear to auscultation bilaterally. ABDOMEN: Soft, nontender without palpable masses or hepatosplenomegaly. : Not assessed. EXTREMITIES: No evidence of cyanosis, clubbing, or edema. Moves all extremities independently without obvious deficit. NEUROLOGICAL: Grossly within normal limits. Cranial Nerves: II: Visual [place] are intact. III, IV AND : Extraocular movements are intact. Pupils are equal, round and reactive to light. V: Facial sensation is grossly normal. VII: Facial movements and expression are normal. VIII: Auditory acuity grossly intact. IX, X: Uvula is midline. Phonation is normal. XI: Patient shrugs shoulders and turns head normally. XII: Tongue protrudes in the midline. Sensory and Motor Function: Sensory and motor sensation is grossly normal. Motor: moves all extremities well. Coordination: Gait is normal. Deep Tendon Reflexes: Intact. IMPRESSION 1. Psychiatric admission. 2. Hypertension. 3. Type 2 diabetes. 4. Hyperlipidemia. 5. Hepatitis C. 6. Withdrawal seizures. 7. Hypothyroidism. 8. Chronic obstructive pulmonary disease. RECOMMENDATIONS PSYCHIATRIC: Per psychiatrist. MEDICAL: No contraindication to participate in this facility's activities. MEDICAL PROGNOSIS Good. MEDICAL CONDITION Stable. Dictated by... Unit #: [id number] #: [id number] Patient: SILVANAALEJANDRO LEO A.P.R.N. MJW/josiah TD: 03/30/2017 13:38 JOB #: [id number] HISTORY AND PHYSICAL Page 1 of 1 X TERRY WHITFIELD APRN X HISTORY AND PHYSICAL
--- NOTE | ~2017-03-29 | CO ---
Unit #: [id number] #: [id number] Patient: ALEJANDRO KNOTT [id number] [place] [address] [id number] I MR#: [id number] NAME: ALEJANDRO KNOTT. ROOM: P258 Age: 41 Sex: M Admission Date: 03/29/2017 : 1975 Attending Physician: Luz Mena M.D. Primary Care Physician: Primary Care Physician No Requesting Physician: Luz Mena M.D. Consultation Date: 03/30/2017 CONSULTATION REPORT HISTORY OF PRESENT ILLNESS Alejandro complains of pain in his left great toe. He noticed that the toe nail has started to change colors and appears to be lifting up a little bit for the past several months. He has diabetes and is concerned about possible infection. He also complains of a mole on his back that appears to be getting larger for the past several years. He does not have any pain in the mole, no bleeding and no other complaints. PHYSICAL EXAM CARDIAC: Regular rate and rhythm. No murmur, gallop or rub. RESPIRATORY: Clear to auscultation bilaterally. SKIN: Left great toe nail thick and hard and yellowed 1 1/2 cm ___(:59) on back with irregular borders and dark color. ASSESSMENT AND PLAN 1. Nevus on back. The patient was instructed that this is concerning due to size and irregular borders and dark color. Also due to the fact that it has been getting larger. He was instructed to see primary care upon followup. He recently moved to the area and has not obtained primary care. We will have hospice social worker assist in obtaining primary care. 2. Onychomycosis the left great toe. Again, the patient was instructed that treatment for this can take several months to a year and he will need to see primary care provider for this as well. Dictated by... Tayler Serrano A.P.R.N. for Eliel TD: 03/31/2017 20:31 JOB #: [id number] Unit #: [id number] #: [id number] Patient: ALEJANDRO KNOTT CONSULTATION REPORT Page 1 of 1 X TAYLER WHITFIELD APRN CONSULTATION REPORT
--- NOTE | ~2017-03-29 | PN ---
Unit #: [id number] #: [id number] Patient: REENA ACKERMAN [id number] [facility] [address] [place] [address] [id number] MR#: [id number] NAME: REENA ACKERMAN. ROOM: P258 Age: 41 Sex: M Admission Date: 03/29/2017 : 1975 Attending Physician: Luz Mena M.D. Admitting Physician: Luz Mena M.D. Primary Care Physician: Primary Care Physician Jazz MORFIN PROGRESS NOTES DATE 04/02/2017 DISCUSSION Mr. Ackerman is a 41-year-old, white male who was seen today and chart was reviewed and case was discussed with the staff. He has been anxious, withdrawn though has not shown any agitation and reports increasing depression early today though he was unable identify any triggers of stress. He reported having suicidal ideation. Meanwhile, he has been taking medications and tolerating them fairly well with no reported side effects. MENTAL STATUS EXAM Middle-aged white male who was casually dressed with fair personal hygiene, appears to be in no acute distress or discomfort. He was awake and alert on interaction with intact orientation. His mood was anxious with congruent affect. He reports having suicidal ideation but denies any homicidal ideation and also he reports auditory hallucinations. His insight and judgement remains significantly impaired. TREATMENT PLAN 1. We will continue him on his current medications and treatment protocol. We will monitor his response to the medication and make further adjustments as needed. 2. We will continue to follow up. Dictated by... Anthony Guadarrama/helena TD: 04/02/2017 22:50 JOB #: [id number] Unit #: [id number] #: [id number] Patient: REENA ACKERMAN SHELBIE PROGRESS NOTES Page 1 of 1 X Luz Mena MD PROGRESS NOTE
--- NOTE | ~2017-03-29 | PN ---
Unit #: [id number] #: [id number] Patient: REENA ACKERMAN [id number] [facility] [address] [place] [address] [id number] MR#: [id number] NAME: REENA ACKERMAN. ROOM: P258 Age: 41 Sex: M Admission Date: 03/29/2017 : 1975 Attending Physician: Luz Mena M.D. Admitting Physician: Luz Mena M.D. Primary Care Physician: Primary Care Physician Jazz MORFIN PROGRESS NOTES DATE OF SERVICE: 04/03/2017 SUBJECTIVE Mr. Ackerman is a 41-year-old white male, who was seen today and chart was reviewed and the case was discussed with the staff. He has been anxious and withdrawn, though has not shown any agitation, irritability, or behavioral problems and has been seclusive to himself and reporting persistent depressive symptoms. MENTAL STATUS EXAMINATION Middle-aged white male, who was casually dressed with fair personal hygiene, appears to be in no acute distress or discomfort. He was awake and alert on interaction with intact orientation. His mood was anxious and depressed with a congruent affect. His speech was slow and goal directed. He denies any suicidal or homicidal ideations. His insight and judgment remain slightly impaired. TREATMENT PLAN 1. We will continue him on his current medications and treatment protocol. We will monitor his response to the medications and make further adjustments as needed. 2. We will continue to follow up. Dictated by... Anthony Guadarrama/cecilia TD: 04/03/2017 12:37 JOB #: [id number] [facility] PROGRESS NOTES Page 1 of 1 X Luz Mena MD PROGRESS NOTE
--- NOTE | ~2017-03-29 | PA ---
Unit #: [id number] #: [id number] Patient: REENA KNOTT [id number] [facility] [address] [place] [address] [id number] I MR#: [id number] NAME: REENA KNOTT. ROOM: P258 Age: 41 Sex: M Admission Date: 03/29/2017 : 1975 Date of Assessment: 03/30/2017 Attending Physician: Luz Mena M.D. Admitting Physician: Luz Mena M.D. Primary Care Physician: Primary Care Physician No PSYCHIATRIC ASSESSMENT IDENTIFYING DATA The patient is a 41-year-old single, disabled white male, who is a resident of [place], [place], who is very well known to us from previous multiple encounters and just discharged from my care three days ago and was self-referred back to the hospital. CHIEF COMPLAINT "Here due to suicidal ideation and a plan to kill myself." HISTORY OF PRESENT ILLNESS The patient is a 41-year-old white male with history of mood disorder, was self-referred to the hospital reporting increasing depression, anxiety, suicidal ideations, and he was discharged from [facility], on March 26, 2017 as well stated that he feels he left too soon and started having thoughts today to kill himself by hanging and he stated he got into an argument last night with his mother and that he is homeless and staying with a friend last night, but does not have any housing and was to start the intensive outpatient program yesterday but did not follow through with treatment plan and indicated that he would not be safe and that he is having thoughts of he want to killing himself and reported having intent and plan and as such, recommendation for inpatient level of care for safety and stabilization was made. The patient was transferred to us. SUBSTANCE ABUSE HISTORY The patient denies any alcohol or drug abuse. PAST PSYCHIATRIC HISTORY The patient has had history of multiple inpatient psychiatric hospitalizations at [facility] and review of the medical records indicate that he has been diagnosed and treated for major depressive disorder and is currently on combination of psychotropic medication, but has been noncompliant with medications and outpatient followup. PAST MEDICAL HISTORY The patient's medical history is significant for hypertension, diabetes mellitus, and asthma. ALLERGIES No known medication allergies. PERSONAL AND SOCIAL HISTORY A 41-year-old white male, who reports that he is single, unemployed, homeless, and has poor social support system. Unit #: [id number] #: [id number] Patient: REENA KNOTT MENTAL STATUS EXAMINATION Middle-aged white male, who was casually dressed with fair personal hygiene, appears to be in no acute distress or discomfort. He was awake and alert on interaction with intact orientation to time, place, and person. His mood was anxious and depressed with congruent affect. Speech was slow and restricted in content. He reports having suicidal ideations, but denies any homicidal ideations, and also denies any auditory or visual hallucinations. His insight and judgment remain significantly impaired. DIAGNOSTIC IMPRESSION Psychiatric: Major depressive disorder, recurrent, moderate, without psychotic features. Medical: Diabetes mellitus and hypertension. Stressors: Moderate psychosocial stressors. TREATMENT PLAN 1. The patient has presented with history of mood disorder and has been decompensating and will need inpatient hospitalization for safety and stabilization. We will start him back on his home medications. We will adjust the medications and monitor response. 2. Supportive therapy was provided to the patient. ESTIMATED LENGTH OF STAY 5 to 7 days. ABILITY TO HELP SELF Limited. WILLINGNESS TO HELP SELF The patient appears to be willing to help self. STRENGTHS 1. Communicative. 2. Cooperative. PROBLEMS 1. Chronic dysphoric symptoms. 2. Poor social support system. DISCHARGE CRITERIA This will be contingent upon the patient's ability to show resolution of her depression and anxiety and her ability to stay safe to herself, particularly after discharge from the hospital. Dictated by... Anthony Guadarrama/cecilia TD: 03/30/2017 13:03 JOB #: [id number] Unit #: [id number] #: [id number] Patient: REENA KNOTT PSYCHIATRIC ASSESSMENT Page 1 of 1 X Luz Mena MD PSYCHIATRIC ASSESSMENT
--- NOTE | ~2017-03-29 | PN ---
Unit #: [id number] #: [id number] Patient: REENA KNOTT [id number] [facility] [address] [place] [address] [id number] I MR#: [id number] NAME: REENA KNOTT. ROOM: P258 Age: 41 Sex: M Admission Date: 03/29/2017 : 1975 Attending Physician: Luz Mena M.D. Admitting Physician: Luz Mena M.D. Primary Care Physician: Primary Care Physician Jazz CLANCY NOTES DATE OF SERVICE 03/31/2017 DISCUSSION Mr. Knott is a 41-year-old white male who was seen today. Chart was reviewed and case was discussed with staff. He remains anxious, withdrawn, depressed, and rather seclusive to himself. Meanwhile, he has been cooperative with the treatment recommendations and has been taking the medications and tolerating them fairly. MENTAL STATUS EXAMINATION Middle-aged white male who is casually dressed with fair personal hygiene, appears to be in no acute distress or discomfort. The patient was awake and alert with impaired attention and concentration. His mood is anxious with a congruent affect. He denies any suicidal or homicidal ideations. His insight and judgment remain slightly impaired. TREATMENT PLAN 1. We will continue him on his current treatment protocol. We will monitor his response to the medications and make further adjustments as needed. 2. We will continue to follow up. Dictated by... Luz Mena M.D. IAA/bzg TD: 04/01/2017 07:07 JOB #: [id number] [facility] PROGRESS NOTES Page 1 of 1 X Luz Mena MD PROGRESS NOTE
--- NOTE | ~2017-03-29 | PN ---
Unit #: [id number] #: [id number] Patient: REENA ACKERMAN [id number] [facility] [address] [place] [address] [id number] I MR#: [id number] NAME: REENA ACKERMAN. ROOM: P258 Age: 41 Sex: M Admission Date: 03/29/2017 : 1975 Attending Physician: Luz Mena M.D. Admitting Physician: Luz Mena M.D. Primary Care Physician: Primary Care Physician Jazz MORFIN PROGRESS NOTES DATE 04/08/2017 DISCUSSION Mr. Ackerman is a 41-year-old, white male who was seen today and chart was reviewed and case was discussed with the staff. He has been anxious, withdrawn and rather seclusive to himself. Meanwhile, he has been cooperative with treatment recommendations. He has been taking medications and tolerating them fairly well with no reported side effects. MENTAL STATUS EXAM Middle-aged white male who was casually dressed with fair personal hygiene, appears to be in no acute distress or discomfort. He was awake and alert on interaction with intact orientation. His mood was anxious with congruent affect. His speech was slow and goal directed. He denies any suicidal or homicidal ideation. Also, denies any auditory or visual hallucinations. His insight and judgement remains significantly impaired. TREATMENT PLAN 1. We will continue him on his current medications and treatment protocol. We will monitor his response and make further adjustments as needed. 2. We will continue to follow up. Dictated by... Anthony Guadarrama/helena TD: 04/09/2017 20:52 JOB #: [id number] Unit #: [id number] #: [id number] Patient: REENA ACKERMAN PROGRESS NOTES Page 1 of 1 X Luz Mena MD PROGRESS NOTE
--- NOTE | ~2017-03-29 | PN ---
Unit #: [id number] #: [id number] Patient: REENA ACKERMAN [id number] [facility] [address] [place] [address] [id number] MR#: [id number] NAME: REENA ACKERMAN. ROOM: P258 Age: 41 Sex: M Admission Date: 03/29/2017 : 1975 Attending Physician: Luz Mena M.D. Admitting Physician: Luz Mena M.D. Primary Care Physician: Primary Care Physician Jazz MORFIN PROGRESS NOTES DATE 04/01/2017 DISCUSSION Mr. Ackerman is a 41-year-old, white male who was seen today and chart was reviewed and case was discussed with the staff. He has been anxious, withdrawn though has not shown any agitation, irritability or behavioral problems and he has been cooperative with the treatment recommendations and has been taking the medication and tolerating them fairly well with no reported side effects. MENTAL STATUS EXAM Middle-aged white male who was casually dressed with fair personal hygiene, appears to be in no acute distress or discomfort. He was awake and alert on interaction with intact orientation. His mood was anxious with congruent affect. He denies any suicidal or homicidal ideation. Also, denies any auditory or visual hallucinations. His insight and judgement remains slightly impaired. TREATMENT PLAN 1. We will continue him on his current treatment protocol. We will monitor his response to the medication and make further adjustments as needed. 2. We will continue to follow up. Dictated by... Anthony Guadarrama/helena TD: 04/02/2017 04:33 JOB #: [id number] Unit #: [id number] #: [id number] Patient: REENA ACKERMAN PROGRESS NOTES Page 1 of 1 X Luz Mena MD PROGRESS NOTE
--- NOTE | ~2017-03-29 | PN ---
Unit #: [id number] #: [id number] Patient: REENA ACKERMAN [id number] [facility] [address] [place] [address] [id number] I MR#: [id number] NAME: REENA ACKERMAN. ROOM: P258 Age: 41 Sex: M Admission Date: 03/29/2017 : 1975 Attending Physician: Luz Mena M.D. Admitting Physician: Luz Mena M.D. Primary Care Physician: Primary Care Physician Jazz MORFIN PROGRESS NOTES DATE 04/07/2017 DISCUSSION Mr. Ackerman is a 41-year-old, white male who was seen today and chart was reviewed and case was discussed with the staff. He has been anxious, withdrawn and rather seclusive to himself. Meanwhile, he has been cooperative with the treatment recommendations. He has been taking the medication and tolerating them fairly well with no reported side effects. MENTAL STATUS EXAM Middle-aged white male who was casually dressed with fair personal hygiene, appears to be in no acute distress or discomfort. He was awake and alert on interaction with intact orientation. His mood was anxious and depressed with congruent affect. He reports having suicidal ideation but denies any homicidal ideation. His insight and judgement remains slightly impaired. TREATMENT PLAN 1. We will continue him on his current treatment (1)____ monitoring response to the medication and make further adjustments as needed. 2. We will continue to follow up. Dictated by... Anthony Guadarrama/helena TD: 04/08/2017 16:46 JOB #: [id number] [facility] PROGRESS NOTES Page 1 of 1 X Luz Mena MD PROGRESS NOTE
--- NOTE | ~2017-03-29 | PN ---
Unit #: [id number] #: [id number] Patient: REENA KNOTT [id number] [facility] [address] [place] [address] [id number] I MR#: [id number] NAME: REENA KNOTT. ROOM: P258 Age: 41 Sex: M Admission Date: 03/29/2017 : 1975 Attending Physician: Luz Mena M.D. Admitting Physician: Anthony Guadarrama PROGRESS NOTES SUBJECTIVE Mr. Knott is a 41-year-old white male, who was seen today and chart was reviewed, and the case was discussed with the staff. He has been anxious, withdrawn, and seclusive to himself. Meanwhile, he has been cooperative with treatment recommendations and has been taking medications and tolerating them fairly well with no reported side effects. MENTAL STATUS EXAMINATION Middle-aged white male, who was casually dressed with fair personal hygiene, . His mood was anxious with a congruent affect. He denies any suicidal or homicidal ideations. TREATMENT PLAN 1. We will continue him on his current medications and treatment protocol. We will monitor his response to medications and make further adjustments as needed. 2. We will continue to follow up. Dictated by... Anthony Guadarrama/cecilia TD: 04/07/2017 21:05 JOB #: [id number] [facility] PROGRESS NOTES Page 1 of 1 X Luz Mena MD PROGRESS NOTE
--- NOTE | ~2017-03-29 | PN ---
Unit #: [id number] #: [id number] Patient: REENA ACKERMAN [id number] [facility] [address] [place] [address] [id number] I MR#: [id number] NAME: REENA ACKERMAN. ROOM: P258 Age: 41 Sex: M Admission Date: 03/29/2017 : 1975 Attending Physician: Luz Mena M.D. Admitting Physician: Luz Mena M.D. Primary Care Physician: Primary Care Physician Jazz CLANCY NOTES DATE 04/05/2017 DISCUSSION Mr. Ackerman is a 21-year-old, white male who was seen today and chart was reviewed and case was discussed with the staff. He has been anxious, withdrawn and reports some persistent depressive symptoms. Meanwhile, he has been cooperative with treatment recommendations. He has been taking medications and tolerating them fairly well with no reported side effects. MENTAL STATUS EXAM Middle-aged white male who was casually dressed with fair personal hygiene, appears to be in no acute distress or discomfort. He was awake and alert on interaction with intact orientation. His mood was anxious with congruent affect. He denies any suicidal or homicidal ideation. His insight and judgement remains slightly impaired. TREATMENT PLAN 1. We will continue him on his current medications and treatment protocol. We will monitor his response to the medication and make further adjustments as needed. 2. We will continue to follow up. Dictated by... Anthony Guadarrama/helena TD: 04/06/2017 08:54 JOB #: [id number] Unit #: [id number] #: [id number] Patient: REENA ACKERMAN [facility] PROGRESS NOTES Page 1 of 1 X Luz Mena MD PROGRESS NOTE
--- NOTE | ~2017-03-29 | PN ---
Unit #: [id number] #: [id number] Patient: REENA KNOTT [id number] [facility] [address] [place] [address] [id number] MR#: [id number] NAME: REENA KNOTT. ROOM: P258 Age: 41 Sex: M Admission Date: 03/29/2017 : 1975 Attending Physician: Luz Mena M.D. Admitting Physician: Luz Mena M.D. Primary Care Physician: Primary Care Physician Jazz CLANCY NOTES DATE OF SERVICE 04/09/2017 DISCUSSION Mr. Knott is a 41-year-old white male who was seen today. Chart was reviewed and case was discussed with the staff. He has been anxious, withdrawn, and rather seclusive to himself but reports significant improvement in his depressive symptoms. He has been taking the medications and tolerating them fairly well with no reported side effects. MENTAL STATUS EXAMINATION Middle-aged white male who is casually dressed with fair personal hygiene, appears to be in no acute distress or discomfort. He was awake and alert on interaction with intact orientation. His mood is anxious with congruent affect. He denies any suicidal or homicidal ideations. His insight and judgment remain slightly impaired. TREATMENT PLAN We will continue him on his current medications and treatment protocol. We will put emphasis on proper discharge planning with good continuity of care plan so that the patient can stay out of the hospital much longer. Dictated by... Luz Mena M.D. IAA/bzg TD: 04/10/2017 08:14 JOB #: [id number] [facility] PROGRESS NOTES Page 1 of 1 X Luz Mena MD PROGRESS NOTE
--- NOTE | ~2017-03-29 | PN ---
Unit #: [id number] #: [id number] Patient: REENA KNOTT [id number] [facility] [address] [place] [address] [id number] I MR#: [id number] NAME: REENA KNOTT. ROOM: P258 Age: 41 Sex: M Admission Date: 03/29/2017 : 1975 Attending Physician: Luz Mena M.D. Admitting Physician: Luz Mena M.D. Primary Care Physician: Primary Care Physician Jazz LCANCY NOTES DATE OF SERVICE: 03/30/2017 SUBJECTIVE The patient is a 41-year-old white male, who was seen today and chart was reviewed, and case was discussed with the staff. He has been anxious, withdrawn, and rather seclusive to himself. Meanwhile, he has been reporting persistent depression, anxiety, and feelings of hopelessness. He has been taking medications and tolerating them fairly well with no reported side effects. MENTAL STATUS EXAMINATION Middle-aged white male, who was casually dressed with fair personal hygiene, appears to be in no acute distress or discomfort. He was awake and alert with impaired attention and concentration. His mood was anxious with a congruent affect. He denies any suicidal or homicidal ideations. His insight and judgment remain slightly impaired. TREATMENT PLAN 1. We will continue with current medications and treatment protocol. We will monitor his response to medications and make further adjustments as needed. 2. We will continue to follow up. Dictated by... Anthony Guadarrama/cecilia TD: 03/30/2017 13:28 JOB #: [id number] Unit #: [id number] #: [id number] Patient: REENA KNOTT [facility] PROGRESS NOTES Page 1 of 1 X Luz Mena MD PROGRESS NOTE
== END 2017-04-10 11:15 | disposition home or self-care (01) | DRG 885 ==
LOC: P2L 14:25
DX: F33.1 Major depressive disorder, recurrent, moderate (principal); E11.9 Type 2 diabetes mellitus without complications; I10 Essential (primary) hypertension; E03.9 Hypothyroidism, unspecified; D22.5 Melanocytic nevi of trunk; B35.1 Tinea unguium; F17.210 Nicotine dependence, cigarettes, uncomplicated
CPT/HCPCS: 82947

== ENCOUNTER 2017-04-17 12:16 | Inpatient (IN) | payer MEDICARE ==
--- NOTE | ~2017-04-17 | PN ---
Unit #: [id number] #: [id number] Patient: REENA ACKERMAN [id number] [facility] [address] [place] [address] [id number] I MR#: [id number] NAME: REENA ACKERMAN. ROOM: P263 Age: 41 Sex: M Admission Date: 04/17/2017 : 1975 Attending Physician: Luz Mena M.D. Admitting Physician: Luz Mena M.D. Primary Care Physician: Primary Care Physician Jazz MORFIN PROGRESS NOTES DATE 04/18/2017 DISCUSSION Mr. Ackerman is a 41-year-old white male who was seen today and chart was reviewed and case was discussed with the staff. He has been anxious, withdrawn and rather seclusive to himself. Meanwhile, he has been cooperative with treatment recommendations and has been taking medications and tolerating them fairly well. MENTAL STATUS EXAMINATION Middle-aged white male who was casually dressed with fair personal hygiene and appears to be in no acute distress or discomfort. He was awake and alert on interaction with intact orientation. His mood was anxious with congruent affect. He reports having suicidal ideation but denies any homicidal ideation. His insight and judgement remains significantly impaired. TREATMENT PLAN 1. Will continue on his current medications and treatment protocol. Will monitor his response and make further adjustments as needed. 2. Will continue to follow up. Dictated by... Anthony Guadarrama/cecil TD: 04/18/2017 23:02 JOB #: [id number] Unit #: [id number] #: [id number] Patient: REENA ACKERMAN [facility] PROGRESS NOTES Page 1 of 1 X Luz Mena MD PROGRESS NOTE
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
--- NOTE | ~2017-04-17 | HP ---
Unit #: [id number] #: [id number] Patient: ALEJANDRO KNOTT [id number] [facility] [address] [place] [address] [id number] I MR#: [id number] NAME: ALEJANDRO KNOTT. ROOM: P263 Age: 41 Sex: M Admission Date: 04/17/2017 : 1975 Attending Physician: Luz Mena M.D. Admitting Physician: Luz Mena M.D. Primary Care Physician: Primary Care Physician No HISTORY AND PHYSICAL Alejandro is a 41 year old admitted to [facility] because of his depression and verbalizing wanting to hurt himself. Patient was seen and H and P dated 03/30/17 was reviewed. This is current. No changes. Please see H and P dated 03/30/17. Dictated by... Cordelia Pate P.A.-C. for Anthony Butterfield/cecil TD: 04/18/2017 15:13 JOB #: [id number] HISTORY AND PHYSICAL Page 1 of 1 X Cordelia Pate HISTORY AND PHYSICAL
--- NOTE | ~2017-04-17 | DS ---
Unit #: [id number] #: [id number] Patient: REENA KNOTT [id number] [facility] [address] [place] [address] [id number] I MR#: [id number] NAME: REENA KNOTT. ROOM: P263 Age: 41 Sex: M Admission Date: 04/17/2017 : 1975 Discharge Date: 04/19/2017 Attending Physician: Luz Mena M.D. Primary Care Physician: Primary Care Physician No DISCHARGE SUMMARY IDENTIFYING DATA Mr. Knott is a 41-year-old single disabled white male who is a resident of [place], [place] and is known to us from previous encounter and was self-referred to the hospital. DISCHARGE DIAGNOSES Psychiatric: Major depressive disorder, recurrent, moderate, with psychosis. Medical: Hypertension, diabetes mellitus, hypothyroidism. Stressors: Moderate psychosocial stressors. HISTORY OF PRESENT ILLNESS Please see initial psychiatric evaluation for details. PAST PSYCHIATRIC HISTORY Please see initial psychiatric evaluation for details. PAST MEDICAL HISTORY Please see initial psychiatric evaluation for details. HOSPITAL COURSE The patient was admitted to the adult psychiatric unit at [facility] and was oriented to the hospital environment. Routine p.r.n. medications were initiated, and he was started back on his home medications. However, he stated that Seroquel has not been helping him and he wanted the medication to be switched and as such, Seroquel was switched to Zyprexa 10 mg at bedtime with good tolerability and therapeutic response, followed by which it was decided that he will be discharged home and will continue treatment on an outpatient basis. DISCHARGE MEDICATIONS Zyprexa 10 mg at bedtime for psychosis. DISCHARGE CONDITION Stable. PROGNOSIS Fair. Dictated by... Luz Mena M.D. IAA/modl Unit #: [id number] #: [id number] Patient: REENA KNOTT TD: 04/19/2017 07:31 JOB #: [id number] DISCHARGE SUMMARY Page 1 of 1 X Luz Mena MD X DISCHARGE SUMMARY
== END 2017-04-19 11:15 | disposition home or self-care (01) | DRG 885 ==
LOC: P2L 15:08 → POF 15:55 → P2L 15:56
DX: F33.1 Major depressive disorder, recurrent, moderate (principal); F29 Unspecified psychosis not due to a substance or known physiological condition; F41.9 Anxiety disorder, unspecified
CPT/HCPCS: 82947

== ENCOUNTER 2017-04-24 04:00 | Inpatient (IN) | payer MEDICARE ==
--- NOTE | ~2017-04-24 | PN ---
Unit #: [id number] #: [id number] Patient: REENA ACKERMAN [id number] [facility] [address] [place] [address] [id number] MR#: [id number] NAME: REENA ACKERMAN. ROOM: P211 Age: 41 Sex: M Admission Date: 04/24/2017 : 1975 Attending Physician: Luz Mena M.D. Admitting Physician: Luz Mena M.D. Primary Care Physician: Primary Care Physician Jazz CLANCY NOTES DATE April 25, 2017 DISCUSSION Mr. Ackerman is a 41-year-old white male, who was seen today and chart was reviewed and the case was discussed with the staff. He has been anxious, withdrawn, and rather seclusive to himself. Meanwhile, he has been cooperative with the treatment recommendations and he has been taking the medications and tolerating them fairly well with no reported side effects. MENTAL STATUS EXAMINATION Middle-aged white male, who was casually dressed with fair personal hygiene and appears to be in no acute distress or discomfort. He was awake and alert on interaction with intact orientation. His mood is anxious with a congruent affect. He denies any suicidal or homicidal ideations. His insight and judgment remain significantly impaired. TREATMENT PLAN 1. We will continue him on his current medications and treatment protocol, and will monitor his response to the medications, and make further adjustments as needed. 2. We will continue to followup. Dictated by... Anthony Guadarrama/hitesh TD: 04/26/2017 10:31 JOB #: [id number] Unit #: [id number] #: [id number] Patient: REENA ACKERMAN SHELBIE PROGRESS NOTES Page 1 of 1 X Luz Mena MD PROGRESS NOTE
--- NOTE | ~2017-04-24 | DS ---
Unit #: [id number] #: [id number] Patient: [facility] [id number] [facility] [address] [place] [address] [id number] MR#: [id number] NAME: REENA ACKERMAN. ROOM: P211 Age: 41 Sex: M Admission Date: 04/24/2017 : 1975 Discharge Date: 04/28/2017 Attending Physician: Luz Mena M.D. Primary Care Physician: Primary Care Physician No DISCHARGE SUMMARY IDENTIFYING DATA Mr. Ackerman is a 41-year-old, single, disabled white male, who is a resident of [place], [place], and is known to us from previous multiple encounters and was recently discharged from my care and was transferred back to us from [facility] Emergency Room. DISCHARGE DIAGNOSES Psychiatric: Schizoaffective disorder, bipolar type, most recent episode depressed, recurrent, moderate, without psychotic features; alcohol dependence, moderate, in acute withdrawals. Medical: Hepatitis C, hypertension, diabetes mellitus. Stressors: Moderate psychosocial stressors. HISTORY OF PRESENT ILLNESS Please see initial psychiatric evaluation for details. PAST PSYCHIATRIC HISTORY Please see initial psychiatric evaluation for details. PAST MEDICAL HISTORY Please see initial psychiatric evaluation for details. HOSPITAL COURSE The patient was admitted to the adult chemical dependency psychiatric unit at [facility] and was oriented to the hospital environment. Routine p.r.n. medications were initiated and started back on his home medications and detox protocol was initiated for alcohol as well and was closely monitored. He was taking the medications regularly and was tolerating them fairly well and was able to show a decent therapeutic response with improvement in depression and anxiety and was able show a decent and therapeutic response and was willing to continue treatment on an outpatient basis. DISCHARGE MEDICATIONS Zyprexa 10 mg at bedtime for psychosis, Zoloft 150 mg a day for depression, Actos 45 mg a day for diabetes, Glucophage 500 mg b.i.d. for diabetes, Wellbutrin XL 300 mg in the morning for depression, Neurontin 800 mg t.i.d. for neuropathy, Synthroid 0.1 mg a day for hypothyroidism, Oretic 12.5 mg a day for hypertension, Levemir 35 units a day for diabetes. DISCHARGE CONDITION Stable. Unit #: [id number] #: [id number] Patient: REENA ACKERMAN. Dictated by... Anthony Guadarrama/cecilia TD: 04/28/2017 12:00 JOB #: [id number] DISCHARGE SUMMARY Page 1 of 1 X Luz Mena MD X DISCHARGE SUMMARY
--- NOTE | ~2017-04-24 | HP ---
Unit #: [id number] #: [id number] Patient: ALEJANDRO KNOTT [id number] [facility] [address] [place] [address] [id number] I MR#: [id number] NAME: ALEJANDRO KNOTT. ROOM: P211 Age: 41 Sex: M Admission Date: 04/24/2017 : 1975 Attending Physician: Lzu Mena M.D. Admitting Physician: Luz Mena M.D. Primary Care Physician: Primary Care Physician No HISTORY AND PHYSICAL Alejandro is a 41 year old admitted to [address] [place] [address] because of his continued depression and verbalizing wanting to hurt himself. He was just discharged from this facility after treatment for the same. Patient was seen and H and P dated 03/30/17 was reviewed. This is current. No changes. Please see H and P dated 03/30/17. Dictated by... Cordelia Pate P.A.-C. for Anthony Butterfield/cecil TD: 04/24/2017 21:09 JOB #: [id number] HISTORY AND PHYSICAL Page 1 of 1 X Cordelia Pate X HISTORY AND PHYSICAL
--- NOTE | ~2017-04-24 | PN ---
Unit #: [id number] #: [id number] Patient: REENA ACKERMAN [id number] [facility] [address] [place] [address] [id number] I MR#: [id number] NAME: REENA ACKERMAN. ROOM: P211 Age: 41 Sex: M Admission Date: 04/24/2017 : 1975 Attending Physician: uLz Mena M.D. Admitting Physician: Luz Mena M.D. Primary Care Physician: Primary Care Physician Jazz MORFIN PROGRESS NOTES DATE 04/27/2017 DISCUSSION Mr. Ackerman is a 41-year-old, white male who was seen today and chart was reviewed and case was discussed with the staff. He has been anxious, withdrawn though has not shown any agitation, irritability, and has been cooperative with treatment recommendations. doing fairly well with no agitation, irritability or behavioral problems and has been cooperative with the treatment recommendations. He has been taking the medication and tolerating them fairly well with no reported side effects. MENTAL STATUS EXAM Middle-aged white male who was casually dressed with fair personal hygiene appears to be in no acute distress or discomfort. He was awake and alert on interaction with intact orientation. His mood was anxious with congruent affect. He denies any suicidal or homicidal ideation. His insight and judgement remains slightly impaired. TREATMENT PLAN 1. We will continue him on his current treatment protocol. We will monitor his response to the medication and make further adjustments as needed. 2. We will continue to follow up. Dictated by... Anthony Guadarrama/helena TD: 04/29/2017 21:10 JOB #: [id number] Unit #: [id number] #: [id number] Patient: REENA ACKERMAN MAGUIGUERRERO PROGRESS NOTES Page 1 of 1 X Luz Mena MD PROGRESS NOTE
--- NOTE | ~2017-04-24 | PN ---
Unit #: [id number] #: [id number] Patient: REENA ACKERMAN [id number] [facility] [address] [place] [address] [id number] MR#: [id number] NAME: REENA ACKERMAN. ROOM: P211 Age: 41 Sex: M Admission Date: 04/24/2017 : 1975 Attending Physician: Luz Mena M.D. Admitting Physician: Luz Mena M.D. Primary Care Physician: Primary Care Physician Jazz CLANCY NOTES DATE OF SERVICE: 04/26/2017 SUBJECTIVE Mr. Ackerman is a 41-year-old white male, who was seen today and chart was reviewed and the case was discussed with the staff. He has been anxious, withdrawn, and rather seclusive to himself, though he has been calm and cooperative with the treatment recommendations and has been taking the medications and tolerating them fairly well. MENTAL STATUS EXAMINATION Middle-aged white male, who was casually dressed with fair personal hygiene, appears to be in no acute distress or discomfort. He was awake and alert on interaction with intact orientation. His mood was anxious with a congruent affect. His speech was slow and goal directed. He denies any suicidal or homicidal ideations and also denies any auditory or visual hallucinations. His insight and judgment remain slightly impaired. TREATMENT PLAN 1. We will continue him on his current medications and treatment protocol and we will monitor his response to the medications and make further adjustments as needed. 2. We will continue to follow up. Dictated by... Anthony Guadarrama/cecilia TD: 04/26/2017 14:56 JOB #: [id number] [facility] PROGRESS NOTES Page 1 of 1 X Luz Mena MD PROGRESS NOTE
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
== END 2017-04-28 11:01 | disposition home or self-care (01) | DRG 897 ==
LOC: P2S 08:42
PROC: HZ2ZZZZ Detoxification Services for Substance Abuse Treatment (ICD-10-PCS; principal; 2017-04-24)
DX: F10.239 Alcohol dependence with withdrawal, unspecified (principal); F31.32 Bipolar disorder, current episode depressed, moderate; I10 Essential (primary) hypertension; F25.0 Schizoaffective disorder, bipolar type; B19.20 Unspecified viral hepatitis C without hepatic coma; E11.9 Type 2 diabetes mellitus without complications; E03.9 Hypothyroidism, unspecified; F41.9 Anxiety disorder, unspecified
CPT/HCPCS: 82947